=== PATIENT | female | born 1995 | race Caucasian/White ===

== ENCOUNTER 2018-05-23 17:17 | Emergency (ER) | payer OTHER ==
[~2018-05-23] VITALS: Ht 149.9 cm; Wt 52.2 kg
== END 2018-05-23 21:12 | disposition home or self-care (01) ==
LOC: EDBD 17:17 → ER 17:17
DX: N94.6 Dysmenorrhea, unspecified (principal); N83.291 Other ovarian cyst, right side

== ENCOUNTER → 2018-11-22 | Emergency (ER) | payer OTHER ==
[~2018-11-22] VITALS: Ht 154.9 cm; Wt 51.7 kg
[~2018-11-22] MED LIST: TORADOL60 MG; ZOLOFT25 MG
== END | disposition left against medical advice (07) ==
LOC: ER 18:25
DX: R10.2 Pelvic and perineal pain (principal)